=== PATIENT | female | born 1935 | race Caucasian/White ===

== ENCOUNTER → 2016-06-25 | Outpatient (REF) ==
[~2016-06-25] MED LIST: 00186-0370-20 IH; ALBUTEROL0.83 MG/ML IH; ALDACTONE 25MG25 M1 PO; ALUMINUM & MAG355 ML PO; ATIVAN 0.50.5 MG/TAB PO; ATIVAN 1MG T1 MG/TAB PO; ATIVAN 2MG/ML2 MG/ML IV; BENGAY COLD THERAP5% TP; BENTYL 10MG10 MG/CAP PO; CALCIUM CARBON600 M1 PO; CARDIZEM CD 24240 MG PO; CLARITIN 1010 MG/TAB PO; COLACE 100100 MG/CAP PO; COUMADIN 2MG2 MG/TAB PO; COUMADIN 3MG3 MG/TAB PO; DESYREL 50MG50 MG PO; EFFEXOR-XR150 MG PO; FLONASE NASAL S16 GM NS; GOOD NEIGH1200 MG/15 PO; IMODIUM A-D2 MG PO; KLOR-CON 1010 MEQ PO; KLOR-CON SPRIN10 MEQ PO; LASIX 40MG TABL40 MG PO; LIQUIFILM TEARS15 ML OU; METAMUCIL FIBE1 EACH PO; METAMUCIL3.4 GM/DOS PO; MIRALAX PA17 GM/Dose PO; MUCINEX DM 30 M1 TE1; MULTI VITAMINS1 TAB PO; NORCO 325 MG-51 TAB PO; NORCO 325 MG-7.1 TAB PO; PATADAY 2.5 ML2.5 ML OU; PROBIOTIC-MAJOR PO; ROXANOL 20MG20 MG/ML PO; RT SPIRIVA18 MCG IH; SALINE MIST 4545 ML NS; SENNA8.8 MG/5 M PO; SYSTANE 0.3-0.1 EACH OP; TOPROL XL 25MG25 MG PO; TRANSDERM-0.5 MG/21 TD; TYLENOL 325MG325 MG PO; TYLENOL 8 HR PO; VITAMIN C500 MG PO; VITAMIN D1000 IU PO; ZOFRAN 4MG T4 MG/TAB PO; ZOFRAN ODT4 MG IV; ZOLOFT 50MG50 MG PO; [UNRECOGNIZED DRUG - OTHER] VG
== END ==
LOC: ZLAB.WCH 10:12
DX: Z01.89 Encounter for other specified special examinations (principal)

== ENCOUNTER 2016-07-11 10:21 | Inpatient (IN) | payer MEDICARE, BC, MEDICAID ==
[~2016-07-11] VITALS: Ht 165.1 cm; Wt 96.4 kg
[~2016-07-11 10:21] MED LIST changes: -ALDACTONE 25MG25 M1 PO; -ATIVAN 2MG/ML2 MG/ML IV; -CLARITIN 1010 MG/TAB PO; -COUMADIN 3MG3 MG/TAB PO; -DESYREL 50MG50 MG PO; -EFFEXOR-XR150 MG PO; -KLOR-CON 1010 MEQ PO; -LIQUIFILM TEARS15 ML OU; -MULTI VITAMINS1 TAB PO; -NORCO 325 MG-7.1 TAB PO; -ROXANOL 20MG20 MG/ML PO; -SENNA8.8 MG/5 M PO; -TOPROL XL 25MG25 MG PO; -TRANSDERM-0.5 MG/21 TD; -ZOFRAN ODT4 MG IV
[2016-07-11 11:30] VITALS: BP 136/71; PULSE 105; TEMP 97.5
[2016-07-11 14:21] LABS: PH 7 (5-8); SQUAMOUS EPITHELIAL 0-2 /hpf; URINE APPEARANCE Hazy; URINE BACTERIA Rare /hpf; URINE BILIRUBIN Negative (NEGATIVE); URINE BLOOD 2+ (NEGATIVE); URINE COLOR Yellow; URINE GLUCOSE Negative (NEGATIVE); URINE KETONE Negative (NEGATIVE); URINE RBC >50 /hpf
[2016-07-11 14:37] VITALS: BP 136/71; PULSE 105; TEMP 97.5
[2016-07-11 14:42] LABS: MEAN CELL VOLUME 88 fl (80.0-100.0); MEAN CORPUSCULAR HGB CONC 29 g/dl (33.0-37.0); MEAN PLATELET VOLUME 9.3 fl (7.4-10.4); PLATELET COUNT 420 K/mm3 (130-400); RED BLOOD COUNT 3.15 M/mm3 (4.10-5.30); REDCELL DISTRIBUTION WIDTH-CV 19.9 % (11.5-14.5); WHITE BLOOD COUNT 14.7 K/mm3 (4.8-10.8)
[2016-07-11 14:50] LABS: HEMATOCRIT 27.8 % (37.0-47.0); MEAN CORPUSCULAR HEMOGLOBIN 25 pg (27.0-31.0)
[2016-07-11 14:53] LABS: ALBUMIN 3.1 gm/dL (3.5-5.0); CALCIUM 9.2 mg/dL (8.4-10.2); CREATININE, serum 0.97 mg/dL (0.52-1.25); PHOSPHOROUS 3.6 mg/dL (2.5-4.5); POTASSIUM 4.2 mmol/L (3.4-5.0)
[2016-07-11 17:00] VITALS: BP 138/93; PULSE 120; TEMP 98.2
[2016-07-11 20:44] VITALS: BP 132/79; PULSE 91; TEMP 98.5
[2016-07-12 01:53] VITALS: BP 112/85; PULSE 83; TEMP 97.7
[2016-07-12 06:21] VITALS: BP 114/77; PULSE 117; TEMP 97.6
[2016-07-12 07:22] LABS: RETIC % 4.1 % (0.5-3.52)
[2016-07-12 07:38] LABS: MEAN CELL VOLUME 89 fl (80.0-100.0); MEAN CORPUSCULAR HGB CONC 28 g/dl (33.0-37.0); MEAN PLATELET VOLUME 9.8 fl (7.4-10.4); PLATELET COUNT 432 K/mm3 (130-400); RED BLOOD COUNT 3.12 M/mm3 (4.10-5.30); REDCELL DISTRIBUTION WIDTH-CV 20.1 % (11.5-14.5); WHITE BLOOD COUNT 14.9 K/mm3 (4.8-10.8)
[2016-07-12 07:47] LABS: HEMATOCRIT 27.6 % (37.0-47.0); HEMOGLOBIN 7.7 g/dl (12.5-16.0); MEAN CORPUSCULAR HEMOGLOBIN 25 pg (27.0-31.0)
[2016-07-12] MEDS ORDERED: NORCO 325 MG-7.1 TAB PO (07:59)
[2016-07-12] MEDS ORDERED: KLOR-CON 1010 MEQ PO (08:12)
[2016-07-12] MEDS ORDERED: COUMADIN 3MG3 MG/TAB PO (08:15)
[2016-07-12] MEDS ORDERED: CLARITIN 1010 MG/TAB PO (08:18)
[2016-07-12] MEDS ORDERED: MULTI VITAMINS1 TAB PO (08:19)
[2016-07-12] MEDS ORDERED: TOPROL XL 25MG25 MG PO (08:19)
[2016-07-12] MEDS ORDERED: MIRALAX PA17 GM/Dose PO (08:20)
[2016-07-12] MEDS ORDERED: ALDACTONE 25MG25 M1 PO (08:20)
[2016-07-12] MEDS ORDERED: DESYREL 50MG50 MG PO (08:21)
[2016-07-12] MEDS ORDERED: EFFEXOR-XR150 MG PO (08:22)
[2016-07-12 08:45] LABS: CALCIUM 9.1 mg/dL (8.4-10.2); CREATININE, serum 0.93 mg/dL (0.52-1.25); POTASSIUM 4.7 mmol/L (3.4-5.0)
[2016-07-12 09:12] VITALS: BP 135/107; PULSE 120; TEMP 98.3
[2016-07-12 13:39] VITALS: BP 113/79; PULSE 107; TEMP 99.7
[2016-07-12 17:01] VITALS: BP 124/48; PULSE 102; TEMP 98.2
[2016-07-12 21:09] VITALS: BP 144/48; PULSE 95; TEMP 97.7
[2016-07-13] VITALS (10 sets, daily range): BP systolic 112–154; BP diastolic 47–95; PULSE 76–108; TEMP 97.9–99.6
[2016-07-13 06:41] LABS: BASO % 0.2 % (0.0-2.0); EOS % 0.1 % (0-4.0); GRAN # 10.6 (1.4-6.5); GRAN % 81.8 % (42.2-75.2); LYMPH # 0.7 (1.2-3.4); LYMPH % 5.4 % (20.0-51.0); MEAN CELL VOLUME 88 fl (80.0-100.0); MEAN CORPUSCULAR HGB CONC 28 g/dl (33.0-37.0); MEAN PLATELET VOLUME 9.7 fl (7.4-10.4); MONO # 1.4 (0.1-0.6); MONO % 11.1 % (1.7-9.3); RED BLOOD COUNT 2.73 M/mm3 (4.10-5.30); REDCELL DISTRIBUTION WIDTH-CV 19.9 % (11.5-14.5)
[2016-07-13 06:43] LABS: INR 2.1 (0.8-3.0)
[2016-07-13 06:46] LABS: CALCIUM 8.8 mg/dL (8.4-10.2); CREATININE, serum 1.03 mg/dL (0.52-1.25); POTASSIUM 4.1 mmol/L (3.4-5.0)
[2016-07-13 06:48] LABS: HEMATOCRIT 24.1 % (37.0-47.0); HEMOGLOBIN 6.8 g/dl (12.5-16.0); MEAN CORPUSCULAR HEMOGLOBIN 25 pg (27.0-31.0); PLATELET COUNT 332 K/mm3 (130-400)
[2016-07-13 18:01] LABS: PROTHROMBIN TIME 22.5 SECONDS (9.7-12.8)
[2016-07-13 18:14] LABS: CALCIUM 8.9 mg/dL (8.4-10.2); CREATININE, serum 1.01 mg/dL (0.52-1.25)
[2016-07-14 05:18] VITALS: BP 153/77; PULSE 104; TEMP 98.1
[2016-07-14 07:20] LABS: MEAN CELL VOLUME 88 fl (80.0-100.0); MEAN CORPUSCULAR HGB CONC 29 g/dl (33.0-37.0); MEAN PLATELET VOLUME 9.8 fl (7.4-10.4); PLATELET COUNT 299 K/mm3 (130-400); RED BLOOD COUNT 3.15 M/mm3 (4.10-5.30); WHITE BLOOD COUNT 12.5 K/mm3 (4.8-10.8)
[2016-07-14 07:26] LABS: INR 1.2 (0.8-3.0); PROTHROMBIN TIME 13.9 SECONDS (9.7-12.8)
[2016-07-14 07:38] LABS: ADD PATHOLOGY DIFF REVIEW NO; HEMATOCRIT 27.7 % (37.0-47.0); MEAN CORPUSCULAR HEMOGLOBIN 25 pg (27.0-31.0)
[2016-07-14 07:41] LABS: CALCIUM 8.7 mg/dL (8.4-10.2); CREATININE, serum 0.91 mg/dL (0.52-1.25); POTASSIUM 3.8 mmol/L (3.4-5.0)
[2016-07-14 08:05] LABS: BAND 6 % (0-10); NEUTROPHILS 81 % (42.0-75.2); TOTAL CELLS COUNTED 100
[2016-07-14 08:07] LABS: ANISOCYTOSIS 2+; HYPOCHROMIA 1+
[2016-07-14 09:34] VITALS: BP 150/75; PULSE 106; TEMP 97.8
[2016-07-14 13:42] VITALS: BP 151/77; PULSE 101; TEMP 98.5
[2016-07-14 18:07] VITALS: BP 125/78; PULSE 115; TEMP 98.8
[2016-07-14 21:46] VITALS: BP 131/67; PULSE 102; TEMP 98.5
[2016-07-15] VITALS (365 sets, daily range): BP systolic 99–148; BP diastolic 58–86; PULSE 106–128; TEMP 97–98.6; O2SAT 97–100
[2016-07-15 06:41] LABS: MEAN CELL VOLUME 88 fl (80.0-100.0); MEAN CORPUSCULAR HGB CONC 29 g/dl (33.0-37.0); MEAN PLATELET VOLUME 9.5 fl (7.4-10.4); PLATELET COUNT 301 K/mm3 (130-400); RED BLOOD COUNT 3.35 M/mm3 (4.10-5.30); REDCELL DISTRIBUTION WIDTH-CV 18.9 % (11.5-14.5); WHITE BLOOD COUNT 13.3 K/mm3 (4.8-10.8)
[2016-07-15 06:44] LABS: INR 1.1 (0.8-3.0); PROTHROMBIN TIME 11.9 SECONDS (9.7-12.8)
[2016-07-15 06:45] LABS: ADD PATHOLOGY DIFF REVIEW NO; HEMATOCRIT 29.6 % (37.0-47.0); HEMOGLOBIN 8.5 g/dl (12.5-16.0); MEAN CORPUSCULAR HEMOGLOBIN 25 pg (27.0-31.0)
[2016-07-15 06:55] LABS: CALCIUM 8.9 mg/dL (8.4-10.2); CREATININE, serum 0.83 mg/dL (0.52-1.25); POTASSIUM 3.8 mmol/L (3.4-5.0)
[2016-07-15 09:10] LABS: BAND 10 % (0-10); METAMYELOCYTE 1 % (0-0); MYELOCYTE 1 % (0-0); NEUTROPHILS 81 % (42.0-75.2); TOTAL CELLS COUNTED 100
[2016-07-15 09:11] LABS: STOMATOCYTE 3+
[2016-07-15 13:00] LABS: ARTERIAL BLD GAS O2 SATURATION 99.1 % (92-100); ARTERIAL BLD GAS TCO2 CT 23.7; ARTERIAL BLOOD GAS BASE EXCESS -2.5 (-2-2); ARTERIAL BLOOD GAS HCO3 22.5 meq/L (22-26); ARTERIAL BLOOD GAS PHT 7.37 C (7.35-7.45); ARTERIAL BLOOD GAS PO2 373.5 mmHg (80-100); ARTERIAL BLOOD GAS PO2T 373.5 (80-100); ARTERIAL BLOOD GAS pH 7.37 (7.35-7.45)
[2016-07-15 13:01] LABS: ABG VENTILATOR TIDAL VOLUME 450 mL; ATS? YES
[2016-07-15 17:29] LABS: HEMATOCRIT 30.6 % (37.0-47.0); HEMOGLOBIN 9.2 g/dl (12.5-16.0); MEAN CELL VOLUME 87 fl (80.0-100.0); MEAN CORPUSCULAR HEMOGLOBIN 26 pg (27.0-31.0); MEAN CORPUSCULAR HGB CONC 30 g/dl (33.0-37.0); MEAN PLATELET VOLUME 9.6 fl (7.4-10.4); PLATELET COUNT 267 K/mm3 (130-400); RED BLOOD COUNT 3.53 M/mm3 (4.10-5.30); REDCELL DISTRIBUTION WIDTH-CV 18.5 % (11.5-14.5)
[2016-07-15 17:30] LABS: WHITE BLOOD COUNT 29.9 K/mm3 (4.8-10.8)
[2016-07-15 17:31] LABS: ADD PATHOLOGY DIFF REVIEW NO
[2016-07-15 17:37] LABS: ANISOCYTOSIS 1+; BAND 51 % (0-10); NEUTROPHILS 45 % (42.0-75.2); PLATELET ESTIMATE NORMAL (NORMAL); TOTAL CELLS COUNTED 100
[2016-07-15 17:49] LABS: CALCIUM 8.1 mg/dL (8.4-10.2); CREATININE, serum 0.99 mg/dL (0.52-1.25); MAGNESIUM 1.4 mg/dL (1.6-2.3); PHOSPHOROUS 3.2 mg/dL (2.5-4.5); POTASSIUM 4.2 mmol/L (3.4-5.0)
[2016-07-16] VITALS (1057 sets, daily range): BP systolic 85–120; BP diastolic 40–60; PULSE 73–100; TEMP 97.7–99.6; O2SAT 94–100
[2016-07-16 04:46] LABS: ARTERIAL BLD GAS O2 SATURATION 85.5 % (92-100); ARTERIAL BLD GAS TCO2 CT 28.2; ARTERIAL BLOOD GAS BASE EXCESS 1.8 (-2-2); ARTERIAL BLOOD GAS HCO3 26.8 meq/L (22-26); ARTERIAL BLOOD GAS PO2 52.3 mmHg (80-100); ARTERIAL BLOOD GAS PO2T 52.3 (80-100); OXYHEMOGLOBIN 84.3 %
[2016-07-16 04:47] LABS: ARTERIAL BLOOD GAS PO2 52.3 mmHg (80-100)
[2016-07-16 04:48] LABS: ALLEN TEST YES; ALLENS TEST RESULT PASS; ARTERIAL BLD GAS O2 SATURATION 85.5 % (92-100); ARTERIAL BLD GAS TCO2 CT 28.2; ARTERIAL BLOOD GAS BASE EXCESS 1.8 (-2-2); ARTERIAL BLOOD GAS HCO3 26.8 meq/L (22-26); ATS? YES
[2016-07-16 05:08] LABS: ALLEN TEST YES; ALLENS TEST RESULT PASS; ATS? YES
[2016-07-16 05:14] LABS: MEAN CORPUSCULAR HGB CONC 30 g/dl (33.0-37.0); MEAN PLATELET VOLUME 10.3 fl (7.4-10.4); PLATELET COUNT 195 K/mm3 (130-400); RED BLOOD COUNT 2.64 M/mm3 (4.10-5.30); REDCELL DISTRIBUTION WIDTH-CV 19.6 % (11.5-14.5)
[2016-07-16 05:17] LABS: ADD PATHOLOGY DIFF REVIEW NO; HEMATOCRIT 25.1 % (37.0-47.0); HEMOGLOBIN 7.5 g/dl (12.5-16.0); MEAN CELL VOLUME 95 fl (80.0-100.0); MEAN CORPUSCULAR HEMOGLOBIN 28 pg (27.0-31.0); WHITE BLOOD COUNT 25.8 K/mm3 (4.8-10.8)
[2016-07-16 05:55] LABS: BAND 17 % (0-10); NEUTROPHILS 80 % (42.0-75.2); TOTAL CELLS COUNTED 100
[2016-07-16 06:55] LABS: BILIRUBIN,TOTAL 0.4 mg/dL (0.0-1.0); CALCIUM 8.4 mg/dL (8.4-10.2); CREATININE, serum 1.63 mg/dL (0.52-1.25); MAGNESIUM 1.7 mg/dL (1.6-2.3); PHOSPHOROUS 2.2 mg/dL (2.5-4.5); POTASSIUM 4.2 mmol/L (3.4-5.0); TOTAL PROTEIN 4.4 gm/dL (6.4-8.2)
[2016-07-16 10:12] LABS: HEMATOCRIT 25.2 % (37.0-47.0); HEMOGLOBIN 7.6 g/dl (12.5-16.0)
[2016-07-16 16:49] LABS: VENOUS BLOOD GAS BE 6.4 (-4-4); VENOUS BLOOD GAS SITE CENTRAL LINE
[2016-07-16 16:51] LABS: VENOUS BLOOD GAS SAO2 61.4 % (60-80); VENOUS BLOOD GAS SITE CENTRAL LINE
[2016-07-16 17:36] LABS: PH 5 (5-8); SQUAMOUS EPITHELIAL 0-2 /hpf; URINE APPEARANCE Cloudy; URINE BACTERIA Rare /hpf; URINE BILIRUBIN Negative (NEGATIVE); URINE BLOOD Negative (NEGATIVE); URINE COLOR Amber; URINE GLUCOSE Negative (NEGATIVE); URINE KETONE Trace (NEGATIVE); URINE UROBILINOGEN Negative (NEGATIVE)
[2016-07-16 20:29] LABS: VENOUS BLOOD GAS BE 0.7 (-4-4); VENOUS BLOOD GAS SAO2 71.6 % (60-80)
[2016-07-16 20:30] LABS: VENOUS BLOOD GAS SITE CENTRAL LINE
[2016-07-17] VITALS (1390 sets, daily range): BP systolic 83–118; BP diastolic 32–70; PULSE 70–109; TEMP 97.8–99.4; O2SAT 81–100
[2016-07-17 00:29] LABS: VENOUS BLOOD GAS BE 3.1 (-4-4); VENOUS BLOOD GAS SAO2 69.3 % (60-80); VENOUS BLOOD GAS SITE CENTRAL LINE
[2016-07-17 04:22] LABS: VENOUS BLOOD GAS BE 3.1 (-4-4)
[2016-07-17 04:23] LABS: VENOUS BLOOD GAS SITE CENTRAL LINE
[2016-07-17 05:24] LABS: ALLEN TEST NO; ARTERIAL BLD GAS O2 SATURATION 96.3 % (92-100); ARTERIAL BLD GAS TCO2 CT 28.3; ARTERIAL BLOOD GAS BASE EXCESS 2.1 (-2-2); ARTERIAL BLOOD GAS PO2 91.5 mmHg (80-100); ARTERIAL BLOOD GAS pH 7.41 (7.35-7.45); ATS? YES; OXYHEMOGLOBIN 95.4 %
[2016-07-17 06:00] LABS: MEAN CORPUSCULAR HGB CONC 31 g/dl (33.0-37.0); MEAN PLATELET VOLUME 10.6 fl (7.4-10.4); PLATELET COUNT 169 K/mm3 (130-400); RED BLOOD COUNT 2.79 M/mm3 (4.10-5.30); REDCELL DISTRIBUTION WIDTH-CV 17.8 % (11.5-14.5)
[2016-07-17 06:08] LABS: ADD PATHOLOGY DIFF REVIEW NO; HEMATOCRIT 24.5 % (37.0-47.0); HEMOGLOBIN 7.6 g/dl (12.5-16.0); MEAN CELL VOLUME 88 fl (80.0-100.0); MEAN CORPUSCULAR HEMOGLOBIN 27 pg (27.0-31.0); WHITE BLOOD COUNT 32.8 K/mm3 (4.8-10.8)
[2016-07-17 06:16] LABS: INR 1.1 (0.8-3.0)
[2016-07-17 06:17] LABS: ADJUSTED CALCIUM 9.9 mg/dL (8.4-10.2); ALBUMIN 1.8 gm/dL (3.5-5.0); BILIRUBIN,TOTAL 0.4 mg/dL (0.0-1.0); CALCIUM 8.1 mg/dL (8.4-10.2); CREATININE, serum 2.31 mg/dL (0.52-1.25); MAGNESIUM 2.2 mg/dL (1.6-2.3); POTASSIUM 4.7 mmol/L (3.4-5.0); TOTAL PROTEIN 4.2 gm/dL (6.4-8.2)
[2016-07-17 06:18] LABS: PARTIAL THROMBOPLASTIN TIME 33.7 SECONDS (26.0-37.0)
[2016-07-17 07:28] LABS: ANISOCYTOSIS 2+; BAND 32 % (0-10); HYPOCHROMIA 2+; NEUTROPHILS 63 % (42.0-75.2)
[2016-07-17 07:29] LABS: TOTAL CELLS COUNTED 200
[2016-07-17 21:14] LABS: VENOUS BLOOD GAS BE -0.7 (-4-4); VENOUS BLOOD GAS SAO2 67.5 % (60-80); VENOUS BLOOD GAS SITE CENTRAL LINE
[2016-07-18] VITALS (1126 sets, daily range): BP systolic 98–164; BP diastolic 43–90; PULSE 82–99; TEMP 98.2–99.1; O2SAT 91–100
[2016-07-18 01:13] LABS: VENOUS BLOOD GAS BE 0.1 (-4-4); VENOUS BLOOD GAS SAO2 66.3 % (60-80); VENOUS BLOOD GAS SITE CENTRAL LINE
[2016-07-18 04:42] LABS: ALLEN TEST NO; ARTERIAL BLD GAS O2 SATURATION 92.5 % (92-100); ARTERIAL BLD GAS TCO2 CT 26.2; ARTERIAL BLOOD GAS BASE EXCESS -1.3 (-2-2); ARTERIAL BLOOD GAS HCO3 24.7 meq/L (22-26); ARTERIAL BLOOD GAS PO2 70.7 mmHg (80-100); ARTERIAL BLOOD GAS pH 7.33 (7.35-7.45); ATS? YES; OXYHEMOGLOBIN 91.8 %
[2016-07-18 05:38] LABS: VENOUS BLOOD GAS BE -0.6 (-4-4); VENOUS BLOOD GAS SAO2 75.4 % (60-80); VENOUS BLOOD GAS SITE CENTRAL LINE
[2016-07-18 06:12] LABS: MEAN CELL VOLUME 90 fl (80.0-100.0); MEAN CORPUSCULAR HGB CONC 31 g/dl (33.0-37.0); MEAN PLATELET VOLUME 10.5 fl (7.4-10.4); PLATELET COUNT 197 K/mm3 (130-400); RED BLOOD COUNT 2.93 M/mm3 (4.10-5.30)
[2016-07-18 06:21] LABS: PROTHROMBIN TIME 11.1 SECONDS (9.7-12.8)
[2016-07-18 06:22] LABS: ADJUSTED CALCIUM 9.6 mg/dL (8.4-10.2); ALBUMIN 2.1 gm/dL (3.5-5.0); BILIRUBIN,TOTAL 0.5 mg/dL (0.0-1.0); CALCIUM 8.1 mg/dL (8.4-10.2); CREATININE, serum 2.6 mg/dL (0.52-1.25); MAGNESIUM 2.5 mg/dL (1.6-2.3); PHOSPHOROUS 5.2 mg/dL (2.5-4.5); POTASSIUM 4.9 mmol/L (3.4-5.0); TOTAL PROTEIN 4.8 gm/dL (6.4-8.2)
[2016-07-18 06:24] LABS: ADD PATHOLOGY DIFF REVIEW NO; HEMATOCRIT 26.4 % (37.0-47.0); HEMOGLOBIN 8.2 g/dl (12.5-16.0); MEAN CORPUSCULAR HEMOGLOBIN 28 pg (27.0-31.0); PARTIAL THROMBOPLASTIN TIME 28.5 SECONDS (26.0-37.0); WHITE BLOOD COUNT 34.8 K/mm3 (4.8-10.8)
[2016-07-18 06:39] LABS: BAND 18 % (0-10); METAMYELOCYTE 1 % (0-0); NEUTROPHILS 79 % (42.0-75.2); PLATELET ESTIMATE NORMAL (NORMAL); TOTAL CELLS COUNTED 100
[2016-07-18 06:58] LABS: HEMATOCRIT REF 32.2 % (37.0-47.0)
[2016-07-18 09:47] LABS: VENOUS BLOOD GAS BE 0.8 (-4-4); VENOUS BLOOD GAS SAO2 74.6 % (60-80); VENOUS BLOOD GAS SITE CENTRAL LINE
[2016-07-18 15:34] LABS: ARTERIAL BLD GAS O2 SATURATION 95.4 % (92-100); ARTERIAL BLD GAS TCO2 CT 25.4; ARTERIAL BLOOD GAS BASE EXCESS -0.4 (-2-2); ARTERIAL BLOOD GAS HCO3 24.2 meq/L (22-26); ARTERIAL BLOOD GAS PHT 7.41 C (7.35-7.45); ARTERIAL BLOOD GAS PO2 81.6 mmHg (80-100); ARTERIAL BLOOD GAS PO2T 81.6 (80-100); ARTERIAL BLOOD GAS pH 7.41 (7.35-7.45); OXYHEMOGLOBIN 94.4 %
[2016-07-18 15:35] LABS: ATS? YES
[2016-07-18 15:36] LABS: ABG VENTILATOR TIDAL VOLUME 480 mL
[2016-07-19] VITALS (868 sets, daily range): BP systolic 111–174; BP diastolic 52–79; PULSE 64–89; TEMP 97.4–99.3; O2SAT 80–100
[2016-07-19 05:11] LABS: ARTERIAL BLD GAS O2 SATURATION 94.2 % (92-100); ARTERIAL BLOOD GAS BASE EXCESS 0.9 (-2-2); ARTERIAL BLOOD GAS HCO3 25.7 meq/L (22-26); ARTERIAL BLOOD GAS PHT 7.41 C (7.35-7.45); ARTERIAL BLOOD GAS pH 7.41 (7.35-7.45); OXYHEMOGLOBIN 93.4 %
[2016-07-19 05:12] LABS: ALLEN TEST YES; ALLENS TEST RESULT PASS; ATS? YES
[2016-07-19 05:37] LABS: BASO % 0.1 % (0.0-2.0); GRAN % 85.6 % (42.2-75.2); LYMPH # 1.8 (1.2-3.4); LYMPH % 8.7 % (20.0-51.0); MEAN CELL VOLUME 90 fl (80.0-100.0); MEAN CORPUSCULAR HGB CONC 31 g/dl (33.0-37.0); MEAN PLATELET VOLUME 10.1 fl (7.4-10.4); MONO # 0.2 (0.1-0.6); MONO % 1.1 % (1.7-9.3); PLATELET COUNT 197 K/mm3 (130-400); RED BLOOD COUNT 2.85 M/mm3 (4.10-5.30); REDCELL DISTRIBUTION WIDTH-CV 18.6 % (11.5-14.5)
[2016-07-19 05:39] LABS: INR 1.1 (0.8-3.0); PROTHROMBIN TIME 11.7 SECONDS (9.7-12.8)
[2016-07-19 05:42] LABS: PARTIAL THROMBOPLASTIN TIME 24.8 SECONDS (26.0-37.0)
[2016-07-19 05:44] LABS: HEMATOCRIT 25.6 % (37.0-47.0); HEMOGLOBIN 7.9 g/dl (12.5-16.0); MEAN CORPUSCULAR HEMOGLOBIN 28 pg (27.0-31.0)
[2016-07-19 05:46] LABS: ADJUSTED CALCIUM 9.8 mg/dL (8.4-10.2); ALBUMIN 2.1 gm/dL (3.5-5.0); BILIRUBIN,TOTAL 0.5 mg/dL (0.0-1.0); CALCIUM 8.3 mg/dL (8.4-10.2); CREATININE, serum 2.65 mg/dL (0.52-1.25); MAGNESIUM 2.5 mg/dL (1.6-2.3); PHOSPHOROUS 4.6 mg/dL (2.5-4.5); POTASSIUM 4.4 mmol/L (3.4-5.0); TOTAL PROTEIN 4.8 gm/dL (6.4-8.2)
[2016-07-19 13:33] LABS: VENOUS BLOOD GAS SAO2 80.8 % (60-80); VENOUS BLOOD GAS SITE CENTRAL LINE
[2016-07-20] VITALS (589 sets, daily range): BP systolic 127–168; BP diastolic 62–84; PULSE 65–116; TEMP 97.2–99.2; O2SAT 83–100
[2016-07-20 04:52] LABS: ARTERIAL BLD GAS O2 SATURATION 96.5 % (92-100); ARTERIAL BLD GAS TCO2 CT 26.1; ARTERIAL BLOOD GAS BASE EXCESS 0.9 (-2-2); ARTERIAL BLOOD GAS HCO3 24.9 meq/L (22-26); ARTERIAL BLOOD GAS PHT 7.44 C (7.35-7.45); ARTERIAL BLOOD GAS PO2 91.5 mmHg (80-100); ARTERIAL BLOOD GAS PO2T 91.5 (80-100); ARTERIAL BLOOD GAS pH 7.44 (7.35-7.45); OXYHEMOGLOBIN 95.7 %
[2016-07-20 04:53] LABS: ALLEN TEST YES; ALLENS TEST RESULT PASS; ATS? YES
[2016-07-20 06:26] LABS: ALBUMIN 2.1 gm/dL (3.5-5.0); BILIRUBIN,TOTAL 0.7 mg/dL (0.0-1.0); CALCIUM 8.5 mg/dL (8.4-10.2); CREATININE, serum 2.33 mg/dL (0.52-1.25); MAGNESIUM 2.4 mg/dL (1.6-2.3); PHOSPHOROUS 3.8 mg/dL (2.5-4.5); POTASSIUM 3.7 mmol/L (3.4-5.0); TOTAL PROTEIN 4.9 gm/dL (6.4-8.2)
[2016-07-20 07:42] LABS: CREATININE, serum 2.33 mg/dL (0.52-1.25); SODIUM 141 mmol/L (137-145)
[2016-07-20 07:51] LABS: MEAN CELL VOLUME 89 fl (80.0-100.0); MEAN CORPUSCULAR HGB CONC 31 g/dl (33.0-37.0); MEAN PLATELET VOLUME 9.8 fl (7.4-10.4); PLATELET COUNT 250 K/mm3 (130-400); RED BLOOD COUNT 3.44 M/mm3 (4.10-5.30); REDCELL DISTRIBUTION WIDTH-CV 19.2 % (11.5-14.5)
[2016-07-20 08:03] LABS: INR 1.1 (0.8-3.0); PROTHROMBIN TIME 11.8 SECONDS (9.7-12.8)
[2016-07-20 08:05] LABS: PARTIAL THROMBOPLASTIN TIME 28.1 SECONDS (26.0-37.0)
[2016-07-20 08:07] LABS: ADD PATHOLOGY DIFF REVIEW NO; HEMATOCRIT 30.6 % (37.0-47.0); HEMOGLOBIN 9.5 g/dl (12.5-16.0); MEAN CORPUSCULAR HEMOGLOBIN 28 pg (27.0-31.0); WHITE BLOOD COUNT 23.6 K/mm3 (4.8-10.8)
[2016-07-20 08:17] LABS: BAND 6 % (0-10); METAMYELOCYTE 2 % (0-0); MYELOCYTE 1 % (0-0); NEUTROPHILS 86 % (42.0-75.2); PLATELET ESTIMATE NORMAL (NORMAL); TOTAL CELLS COUNTED 100
[2016-07-20 11:59] LABS: ARTERIAL BLD GAS O2 SATURATION 96.2 % (92-100); ARTERIAL BLD GAS TCO2 CT 28.8; ARTERIAL BLOOD GAS BASE EXCESS 1.1 (-2-2); ARTERIAL BLOOD GAS HCO3 27.2 meq/L (22-26); ARTERIAL BLOOD GAS PHT 7.35 C (7.35-7.45); ARTERIAL BLOOD GAS PO2 90.2 mmHg (80-100); ARTERIAL BLOOD GAS PO2T 90.2 (80-100); ARTERIAL BLOOD GAS pH 7.35 (7.35-7.45); OXYHEMOGLOBIN 95.5 %
[2016-07-20 12:00] LABS: ATS? YES
[2016-07-21] MEDS ORDERED: TRANSDERM-0.5 MG/21 TD (11:41)
[2016-07-21] MEDS ORDERED: ROXANOL 20MG20 MG/ML PO (11:42)
[2016-07-21] MEDS ORDERED: ATIVAN 2MG/ML2 MG/ML IV (11:45)
[2016-07-21] MEDS ORDERED: ZOFRAN ODT4 MG IV (11:46)
[2016-07-21] MEDS ORDERED: SENNA8.8 MG/5 M PO (11:47)
[2016-07-21] MEDS ORDERED: LIQUIFILM TEARS15 ML OU (11:48)
[2016-07-21 12:26] VITALS: BP 168/84; PULSE 116; TEMP 97.7
== END 2016-07-21 13:03 | disposition hospice, inpatient (51) | DRG 329 ==
LOC: SURG 10:21 → ICU 11:14 → SURG 07-20 19:38
PROVIDERS: Family Medicine; Internal Medicine; Internal Medicine Nephrology; Internal Medicine Pulmonary Disease; Physician Assistant; Surgery
PROC: 5A1955Z Respiratory Ventilation, Greater than 96 Consecutive Hours (ICD-10-PCS; 2016-07-15)
PROC: 0DTC0ZZ Resection of Ileocecal Valve, Open Approach (ICD-10-PCS; principal; 2016-07-15 07:30)
PROC: 0B958ZZ Drainage of Right Middle Lobe Bronchus, Via Natural or Artificial Opening Endoscopic (ICD-10-PCS; 2016-07-16)
PROC: 0B968ZZ Drainage of Right Lower Lobe Bronchus, Via Natural or Artificial Opening Endoscopic (ICD-10-PCS; 2016-07-16)
PROC: 0B988ZZ Drainage of Left Upper Lobe Bronchus, Via Natural or Artificial Opening Endoscopic (ICD-10-PCS; 2016-07-16)
PROC: 0B9B8ZZ Drainage of Left Lower Lobe Bronchus, Via Natural or Artificial Opening Endoscopic (ICD-10-PCS; 2016-07-16)
PROC: 0B968ZZ Drainage of Right Lower Lobe Bronchus, Via Natural or Artificial Opening Endoscopic (ICD-10-PCS; 2016-07-19)
PROC: 0B9B8ZZ Drainage of Left Lower Lobe Bronchus, Via Natural or Artificial Opening Endoscopic (ICD-10-PCS; 2016-07-19)
DX: C18.0 Malignant neoplasm of cecum (principal); A41.9 Sepsis, unspecified organism; R65.20 Severe sepsis without septic shock; J96.01 Acute respiratory failure with hypoxia; Z51.5 Encounter for palliative care; Z66 Do not resuscitate; K65.0 Generalized (acute) peritonitis; N17.9 Acute kidney failure, unspecified; E87.1 Hypo-osmolality and hyponatremia; E87.4 Mixed disorder of acid-base balance; Z85.038 Personal history of other malignant neoplasm of large intestine; I48.2 Chronic atrial fibrillation; I10 Essential (primary) hypertension; J44.9 Chronic obstructive pulmonary disease, unspecified; Z79.01 Long term (current) use of anticoagulants; F41.8 Other specified anxiety disorders; D50.9 Iron deficiency anemia, unspecified
CPT/HCPCS: 90791-AI; 99223; 99232-AI; 99233-AI; A4315; B4178; C1751; C1894; J0610; J0690; J0694; J0696; J0744; J1100; J1160; J1450; J1644; J1650; J1720; J1815; J1940; J2060; J2185; J2250; J2270; J2370; J2405; J2704; J2916; J3010; J3370; J3430; J3475; J3480; J7050; J7060; J7120; J7131; P9016